=== PATIENT | female | born 1990 | race Hispanic/Latino ===

== ENCOUNTER 2020-01-03 10:00 | Inpatient (IN) | payer BC ==
[~2020-01-03] VITALS: Ht 154.9 cm; Wt 60.3 kg
[~2020-01-03 10:00] MED LIST: DOCU-116 PO; FAMO20TA8 PO; FERR1TAB22 PO; IBUP-1493 PO; PERCT PO; PREN-196 PO
[2020-01-06] MEDS ORDERED: CEFAZOLIN SODIUM 1 GM VIAL IVP PRN (06:15)
[2020-01-06] MEDS ORDERED: LACTATED RINGERS 1000ML 1,000 ML IV SCH (06:15)
[2020-01-06] MEDS ORDERED: CALDOLOR 800MG+NS 250ML 250 ML IV SCH (06:15)
[2020-01-06 07:38] LABS: MEAN CORPUSCULAR HEMOGLOBIN 22.3 pg (27.0-33.0); MEAN CORPUSCULAR HGB CONC 30.6 g/dL (32.0-36.0); MEAN CORPUSCULAR VOLUME 73.1 fL (79-99); PLATELET COUNT (AUTO) 353 K/uL (130-400); RED BLOOD CELL COUNT(AUTO) 4.79 MIL/uL (4.00-5.50); RED CELL DISTRIBUTION WIDTH 16.4 % (11.0-15.5); WHITE BLOOD COUNT (AUTO) 10.8 K/uL (4.8-10.8)
[2020-01-06] MEDS ORDERED: MEASLES/MUMPS/RUBELLA VACCINE, LIVE 0.5 ML/VIAL SQ SCH (07:45)
[2020-01-06] MEDS ORDERED: DIPHENHYDRAMINE HCL 25 MG CAPSULE PO PRN (07:45)
[2020-01-06] MEDS ORDERED: LANOLIN 30GM OINTMENT TP PRN (07:45)
[2020-01-06] MEDS ORDERED: HYDROCODONE/ACETAMINOPHEN 5/325 MG TAB PO PRN (07:45)
[2020-01-06] MEDS ORDERED: BISACODYL 10 MG SUPP.RECT RC PRN (07:45)
[2020-01-06] MEDS ORDERED: MEPERIDINE-PF 75 MG/ML SYG IM PRN (07:45)
[2020-01-06] MEDS ORDERED: PROMETHAZINE HCL 25 MG/ML 1ML AMPULE IM PRN (07:45)
[2020-01-06] MEDS ORDERED: DIPH,PERTUSS(ACELL),TET VAC/PF 0.5 ML VIAL IM SCH (07:45)
[2020-01-06] MEDS ORDERED: OXYTOCIN-LR 20 UNITS/1000 ML 1,000 ML IV PRN (07:45)
[2020-01-06] MEDS ORDERED: ACETAMINOPHEN EXTRA STRENGTH 500 MG TABLET PO PRN (07:45)
[2020-01-06] MEDS ORDERED: ACETAMINOPHEN-CODEINE 300/30MG TAB PO PRN (07:45)
[2020-01-06] MEDS ORDERED: SODIUM CHLORIDE 0.9% 10 ML VIAL IVP PRN (07:45)
[2020-01-06] MEDS ORDERED: OXYTOCIN 10 USP UNITS/ML ONE (08:03)
[2020-01-06] MEDS ORDERED: DURAMORPH PF1 MG/ML 10ML AMP IV ONE (08:04)
[2020-01-06] MEDS ORDERED: CEFAZOLIN SODIUM 1 GM VIAL IVP ONE (08:05)
[2020-01-06] MEDS ORDERED: EPHEDRINE SULFATE 50 MG/ML AMPULE ONE (08:14)
[2020-01-06] MEDS ORDERED: METHYLERGONOVINE MALEATE 0.2 MG/1 ML ML ONE (08:24)
[2020-01-06] MEDS ORDERED: ONDANSETRON HCL 4 MG/2 ML VIAL ONE ×2 (09:29→12:06)
[2020-01-06 10:44] VITALS: BP 114/69
[2020-01-06] MEDS ORDERED: LORA-868 PO (10:58)
[2020-01-06] MEDS ORDERED: ESOM20CA60 PO (10:58)
[2020-01-06] MEDS: LIDOCAINE 5% TOPICAL PATCH TP SCH (11:08)
[2020-01-06] MEDS ORDERED: NALOXONE HCL 0.4 MG/1 ML ML IVP PRN (12:15)
[2020-01-06] MEDS ORDERED: DiphenhydrAMINE HCL 50 MG/ML VIAL IVP PRN (12:15)
[2020-01-06] MEDS ORDERED: ONDANSETRON HCL 4 MG/2 ML VIAL IVP PRN (12:15)
[2020-01-06] MEDS ORDERED: EPHEDRINE SULFATE 50 MG/ML AMPULE IVP PRN (12:15)
[2020-01-06 13:47] LABS: RAPID PLASMA REAGIN REACTIVE (NONREACTIVE)
[2020-01-06 14:03] LABS: RAPID PLASMA REAGIN TITER REACTIVE 1:4 (NONREACTIVE)
[2020-01-06] MEDS: DEXTROSE 5 %-0.45 % NACL 1,000 ML IV PRN ×2 (14:31→22:36)
--- NOTE | 2020-01-06 15:15 | NUR ---
REPORT RECEIVED FROM SHAHRIAR LOPEZ AND PATIENT CARE TRANSFERED AT THIS TIME. PATIENT IS RESTINGH QUIETLY AND BONDING WELL WITH BABY. PN RECORD CARD OBTAINES FROM PATIENT AND COPY PLACED ON FOLDER AND COPY GIVEN TO NURSERY FOR POSITIVE RPR.
[2020-01-06] MEDS: CALDOLOR 800MG+NS 250ML 250 ML IV SCH ×2 (16:17→23:40)
[2020-01-06 16:23] VITALS: BP 124/77
--- NOTE | 2020-01-06 17:00 | NUR ---
#2 CALDOLOR HUNG AND PATIENT MADE AWARE OF NEED FOR ONE MORE DOSE OF CALDOLOR. ALFARO CATHETER WAS DRAINED FOR 1700CC OF CLOUDY URINE AND WHEN PT WAS MADE AWARE OF COLOR OF URINE SHE INDICATED MILK HAD BEEN PLACE ON CATHETER TO MAKE SURE NO NICS ON BLADDER.
[2020-01-06 19:25] VITALS: BP 134/73
[2020-01-06] MEDS: DOCUSATE SODIUM 100 MG CAP PO SCH (21:00)
[2020-01-06] MEDS: SIMETHICONE 80 MG TAB.CHEW PO PRN (21:19)
[2020-01-06 23:06] VITALS: BP 108/73
--- NOTE | 2020-01-06 23:30 | NUR ---
Lidoderm patch take out.
--- NOTE | 2020-01-06 23:35 | NUR ---
Activity; Patient ambulate inside the room for 15 minutes.She tolerated it well.
[2020-01-07 03:09] VITALS: BP 111/73
[2020-01-07] MEDS: DEXTROSE 5 %-0.45 % NACL 1,000 ML IV PRN (06:23)
[2020-01-07 06:31] LABS: HEMATOCRIT 27.4 % (36-48); MEAN CORPUSCULAR HEMOGLOBIN 21.7 pg (27.0-33.0); MEAN CORPUSCULAR HGB CONC 29.2 g/dL (32.0-36.0); MEAN CORPUSCULAR VOLUME 74.5 fL (79-99); RED BLOOD CELL COUNT(AUTO) 3.68 MIL/uL (4.00-5.50); RED CELL DISTRIBUTION WIDTH 16.5 % (11.0-15.5); WHITE BLOOD COUNT (AUTO) 9.9 K/uL (4.8-10.8)
--- NOTE | 2020-01-07 06:45 | NUR ---
Boykin; Boykin Catheter taken out patient tolerated it well. Advice to call for help if needed.
[2020-01-07 07:22] VITALS: BP 109/65
[2020-01-07] MEDS: LIDOCAINE 5% TOPICAL PATCH TP SCH (08:17)
[2020-01-07] MEDS: SIMETHICONE 80 MG TAB.CHEW PO PRN ×2 (08:17→14:37)
[2020-01-07] MEDS: DOCUSATE SODIUM 100 MG CAP PO SCH (08:17)
[2020-01-07] MEDS: IBUPROFEN 800 MG TAB PO PRN ×2 (08:18→14:38)
[2020-01-07 09:13] LABS: HEPATITIS Bs ANTIGEN SCREEN P Negative (Negative)
[2020-01-07 11:15] VITALS: BP 109/62
--- NOTE | 2020-01-07 12:00 | NUR ---
PATIENT HAS VOIDED TWICE WITH 800CC VOIDED ON SECOND VOID AND 200 ON FIRST VOID. PIV WAS REMOVED AND SITE WNL. VERBALIZES PASSING GAS BUT NO BM YET. STATES FEELING COMFORTABLE ABOUT GOING HOME.
--- NOTE | 2020-01-07 14:45 | NUR ---
MOTRIN WAS GIVEN TO PATIENT AND INSTRUCTIONS FOR DISCHARGE. PATIENT VERBALIZED UNDERSTANDING INSTRUCTIONS GIVEN. VERBALIZED STARTING TO FEEL INCISIONAL DISCOMFORT AND WAS MADE AWARE OF MOTRIN GIVEN FOR DISCOMFORT. PATIENT IS ALLERGIC TO CODEINE AND REFUSED TYLENOL WITH CODEINE AND INDICATED NOT WANTINGF NARCOTICS. INSTRUCTIONS COMPLETED AND VERBALIZED HAVING NO QUESTIONS. STATES SCRIPT WAS GIVEN ON LAST DOCTOR'S VISIT BUT HAS NOT FILLED IT YET.
--- NOTE | 2020-01-07 15:25 | NUR ---
PATIENT WAS TAKEN VIA W/C CARRYING BABY IN ARMS AND WAS DISCHARGED TO HER IN STABLE CONDITION.
--- NOTE | 2020-01-07 15:37 | NUR ---
HX OF ANXIETY SW met with pt who lives with her Chepe Luna and their 3 children, 3yro son and daughters 5 and NB DEB LUNA. Pt's mother Emilia Santos also lives with them. Pt and spouse are independent and drive, pt unemployed, has [place] and [place], works at [email or web address]. Couple has basic ites for NB and car seat. [facility] will follow baby after dc. Pt has good family support and her mother will assist at dc. Pt reports hx of generalized anxiety dx by her PCP in 2014. Pt was never rx mediation or psych care. Pt states she has learned to control it by her diet, drinking teas, and occupying her time. Pt denies hx of ideations or suicide attempts. Also denies any post depression. PT denies any hx of abuse, domestic violence CPS or legal issues. Pt denies need for referral or intervention at this time.
== END 2020-01-07 15:25 | disposition home or self-care (01) | DRG 788 ==
LOC: EDSTATUS 10:00 → LDH 01-06 05:37 → WSH 01-06 10:40
PROVIDERS: ADMIT Obstetrics & Gynecology; ATTEND Obstetrics & Gynecology
PROC: 3E0234Z Introduction of Serum, Toxoid and Vaccine into Muscle, Percutaneous Approach (ICD-10-PCS; 2020-01-06)
PROC: 3E0134Z Introduction of Serum, Toxoid and Vaccine into Subcutaneous Tissue, Percutaneous Approach (ICD-10-PCS; 2020-01-06)
PROC: 10D00Z1 Extraction of Products of Conception, Low, Open Approach (ICD-10-PCS; principal; 2020-01-06 07:30)
DX: O34.211 Maternal care for low transverse scar from previous cesarean delivery (principal); Z37.0 Single live birth; O99.62 Diseases of the digestive system complicating childbirth; O99.89 Other specified diseases and conditions complicating pregnancy, childbirth and the puerperium; N73.6 Female pelvic peritoneal adhesions (postinfective); K21.9 Gastro-esophageal reflux disease without esophagitis; Z20.828 Contact with and (suspected) exposure to other viral communicable diseases; O62.2 Other uterine inertia; Z3A.37 37 weeks gestation of pregnancy; Z23 Encounter for immunization
CPT/HCPCS: 36415; 59510; 85027; 86592; 86780; 86850; 86900; 86901; 87340; A4344; G0378; J0690; J1741; J2210; J2274; J2405; J2550; J2590; J3490; U0003